=== PATIENT | female | born 1980 | race Caucasian/White ===

== ENCOUNTER 2017-07-11 09:25 | Day surgery (SDC) | payer BC ==
[~2017-07-11 09:25] MED LIST: Bupivacaine 0.5% 10 ML SDV ONE; Lactated Ringers 1,000 ML IV SCH; ceFAZolin 1 GM Vial ONE
[2017-07-11] MEDS ORDERED: fentaNYL 100 MCG/2 ML SDV ONE (09:32)
[2017-07-11] MEDS ORDERED: Midazolam 1 MG/ML 2 ML SDV ONE (09:32)
[2017-07-11] MEDS ORDERED: Lidocaine 2% 5 ML SDV ONE (09:32)
[2017-07-11] MEDS ORDERED: Ondansetron 4 MG/2 ML SDV ONE (09:32)
[2017-07-11] MEDS ORDERED: Propofol 200 MG/20 ML SDV ONE (09:32)
--- NOTE | 2017-07-11 10:28 | PCM.PREANE ---
Preanesthetic Assessment - Procedure Proposed Procedure: left axillary dissection for infected area - Anesthesia/Transfusion/Family Hx Anesthesia History: Prior Anesthesia Without Reaction Other Type of Anesthesia Reaction Comment: Denies any known problems, no knwon family histroy of problems Transfusion History: No Prior Transfusion(s) Intubation History: Unknown - Review of Systems General: Other (axillary problem) Pulmonary: Other (asthmatic, smoker, uses bronchodilator daily) Gastrointestinal: No Symptoms Neurological: No Symptoms Other: Reports: None - Physical Assessment NPO Status Date: 07/10/17 NPO Status Time: 22:30 O2 Sat by Pulse Oximetry: 98 Respiratory Rate: 16 Vital Signs: Last Vital Signs Temp 97.5 F 07/11/17 09:46 Pulse 76 07/11/17 09:46 Resp 16 07/11/17 09:46 BP 109/59 L 07/11/17 09:46 Pulse Ox 98 07/11/17 09:46 Height: 5 ft 5 in Weight: 139 lb ASA Class: 2 Mental Status: Alert & Oriented x3 Airway Class: Mallampati = 1 Dentition: Reports: Normal Dentition Thyro-Mental Finger Breadths: 3 Mouth Opening Finger Breadths: 3 ROM/Head Extension: Full Lungs: Clear to Auscultation, Normal Respiratory Effort Cardiovascular: Regular Rate, Regular Rhythm, No Murmurs - Lab Values: Laboratory Last Values Urine HCG, Qual NEGATIVE (NEGATIVE) 07/11/17 09:29 - Allergies Allergies/Adverse Reactions: Allergies Allergy/AdvReac Type Severity Reaction Status Date / Time amoxicillin Allergy Hives Verified 08/13/14 10:45 diphenhydramine HCl Allergy Hives Verified 08/13/14 10:45 [From Benadryl] erythromycin base Allergy Hives Verified 07/05/17 09:20 latex Allergy Itching Verified 08/13/14 10:45 Sulfa (Sulfonamide Allergy Hives Verified 08/13/14 10:45 Antibiotics) sulfamethoxazole Allergy Hives Verified 08/13/14 10:45 [From Bactrim] trimethoprim [From Bactrim] Allergy Hives Verified 08/13/14 10:45 coconuts Allergy Hives Uncoded 08/13/14 10:45 Melons Allergy Hives Uncoded 08/13/14 10:45 - Blood Blood Available: No Product(s) Available: None - Acknowledgements Anesthesia Type Planned: General Anesthesia (LMA) Pt an Appropriate Candidate for the Planned Anesthesia: Yes Alternatives and Risks of Anesthesia Discussed w Pt/Guardian: Yes Pt/Guardian Understands and Agrees with Anesthesia Plan: Yes PreAnesthesia Questionnaire HEENT History: Reports: Other (See Below) 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 Respiratory History: Reports: Asthma Gastrointestinal History: Reports: GERD, Other (See Below) Other Gastrointestinal History: hx gastric ulcer Genitourinary History: Reports: None Musculoskeletal History: Reports: Fracture Other Musculoskeletal History: hx fx elbow, collarbone and shoulder Neurological History: Reports: Migraines - Past Surgical History Head Surgeries/Procedures: Reports: None GI Surgical History: Reports: Appendectomy Female Surgical History: Reports: Breast Biopsy, Section Dermatological Surgical History: Reports: Other (See Below) - SUBSTANCE USE Smoking Status *Q: Current Every Day Smoker Tobacco Use Within Last Twelve Months: Cigarettes Days Per Week of Alcohol Use: 7 Number of Drinks Per Day: 6 Total Drinks Per Week: 42 Recreational Drug Use History: No - HOME MEDS Home Medications: Home Meds Albuterol [Ventolin HFA] 2 puff INH ASDIRECTED PRN 08/13/14 [History] Cyclobenzaprine HCl 1 tab PO TID PRN 07/05/17 [History] Ranitidine HCl [Zantac] 150 mg PO ASDIRECTED PRN 07/05/17 [History] traMADol HCl [Tramadol HCl] 50 mg PO ASDIRECTED PRN 07/05/17 [History] - CURRENT (IN HOUSE) MEDS Current Meds: Current Medications Fentanyl (Sublimaze) 50 mcg IVPUSH .Q5MIN PRN PRN Reason: Pain Lactated Ringer's (Ringers, Lactated) 1,000 mls @ 125 mls/hr IV ASDIRECTED IRINA Discontinued Medications Bupivacaine HCl (Sensorcaine-Mpf 0.5%) Confirm Administered Dose 10 ml .ROUTE .STK-MED ONE Stop: 07/11/17 07:29 Cefazolin Sodium (Ancef) Confirm Administered Dose 3 gm .ROUTE .STK-MED ONE Stop: 07/11/17 07:29 Fentanyl (Sublimaze) Confirm Administered Dose 200 mcg .ROUTE .STK-MED ONE Stop: 07/11/17 09:33 Lidocaine (Xylocaine-Mpf 2%) Confirm Administered Dose 5 ml .ROUTE .STK-MED ONE Stop: 07/11/17 09:33 Midazolam HCl (Versed 1 Mg/Ml) Confirm Administered Dose 2 mg .ROUTE .STK-MED ONE Stop: 07/11/17 09:33 Ondansetron HCl (Zofran) Confirm Administered Dose 4 mg .ROUTE .STK-MED ONE Stop: 07/11/17 09:33 Propofol (Diprivan 20 Ml) Confirm Administered Dose 200 mg .ROUTE .STK-MED ONE Stop: 07/11/17 09:33
[2017-07-11] MEDS ORDERED: Morphine 10 MG/ML Syringe IVPUSH PRN (11:08)
[2017-07-11] MEDS ORDERED: Acetaminophen/HYDROcodone 325-5 MG Tab PO PRN (11:08)
[2017-07-11] MEDS ORDERED: Lactated Ringers 1,000 ML IV SCH (11:15)
--- NOTE | 2017-07-11 11:16 | PCM.OPNOTE ---
- General Post-Op/Procedure Note Date of Surgery/Procedure: 07/11/17 Operative Procedure(s): Incision and drainage, recurrent, left axillary abscess Pre Op Diagnosis: Recurrent left axillary abscess Post-Op Diagnosis: Same Anesthesia Technique: General LMA (ASA II) Primary Surgeon: Hugh Milligan Fluid Replacement, Intraop: 1,000 EBL in mLs: 5 Condition: Good Free Text/Narrative:: Dictation [id number] CPT CODE 91615
[2017-07-11] MEDS ORDERED: Bupivacaine 0.5% 10 ML SDV ONE (11:25)
--- NOTE | 2017-07-11 11:28 | PCM.POSTAN ---
POST ANESTHESIA ASSESSMENT - MENTAL STATUS Mental Status: Alert, Oriented - RESPIRATORY Respiratory Status: Respiratory Rate WNL, Airway Patent, O2 Saturation Stable - CARDIOVASCULAR CV Status: Pulse Rate WNL, Blood Pressure Stable - GASTROINTESTINAL GI Status: No Symptoms - PAIN Pain Score: 9 Free Text/Narrative:: getting pain mediation before leaving recovery. - POST OP HYDRATION Hydration Status: Adequate & Stable
[2017-07-11] MEDS: fentaNYL 100 MCG/2 ML SDV IVPUSH PRN ×2 (11:31→11:37)
--- NOTE | 2017-07-11 11:39 | OR ---
SURGEON: Hugh Milligan M.D. DATE OF PROCEDURE: 07/11/2017 OPERATION PERFORMED: Incision and drainage, recurrent left axillary abscess. ANESTHESIA: General LMA. ASA CLASSIFICATION: II. PREOPERATIVE DIAGNOSIS: Recurrent left axillary abscess. POSTOPERATIVE DIAGNOSIS: Recurrent left axillary abscess. ESTIMATED BLOOD LOSS: 5 mL. INTRAOPERATIVE FLUID REPLACEMENT: A 1000 mL of crystalloid. DESCRIPTION OF PROCEDURE: The patient was taken to the operating room and placed on the operating table in supine position. Time-out was called for appropriate identification of the patient and procedure. Following satisfactory attainment of general anesthesia with placement of an LMA, the left arm was abducted and supported on a pillow and sponge cushions. The left axilla was prepped with Betadine solution and sterile drapes were applied. Skin incision was made directly through the previous axillary incision and blunt dissection was carried down into the subcutaneous tissue. No significant abscess cavity was identified. Aerobic cultures were obtained, although, no obvious inflammatory mass was identified. Dissection was carried down towards the breast and again no significant loculations were identified and there was no significant inflammatory reaction. The wound was then irrigated with sterile saline solution and packed open with half-inch plain Nu Gauze dressed with 4x4s and held in place with Mefix tape. Sponge, needle, and instrument counts were all correct. The patient tolerated the procedure well. Following emergence from anesthesia and extubation, she was taken to recovery room in stable condition. JASMIN FRAZIER /[id number]
[2017-07-11 12:40] VITALS: BP 113/68
--- NOTE | 2017-07-11 13:10 | PCM48HPAN ---
Post Anesthesia Note - EVALUATION WITHIN 48HRS OF ANESTHETIC Vital Signs in Normal Range: Yes Patient Participated in Evaluation: Yes Respiratory Function Stable: Yes Airway Patent: Yes Cardiovascular Function Stable: Yes Hydration Status Stable: Yes Pain Control Satisfactory: Yes Nausea and Vomiting Control Satisfactory: Yes Mental Status Recovered: Yes - COMMENTS/OBSERVATIONS Free Text/Narrative:: No apparent anesthesia complications
== END 2017-07-11 13:15 | disposition home or self-care (01) ==
LOC: MW.SDS 09:25
PROVIDERS: ATTEND Surgery
DX: L02.412 Cutaneous abscess of left axilla (principal); F17.210 Nicotine dependence, cigarettes, uncomplicated; J45.909 Unspecified asthma, uncomplicated; K21.9 Gastro-esophageal reflux disease without esophagitis; G43.909 Migraine, unspecified, not intractable, without status migrainosus; Z88.0 Allergy status to penicillin; Z88.2 Allergy status to sulfonamides; Z88.8 Allergy status to other drugs, medicaments and biological substances; Z88.1 Allergy status to other antibiotic agents; Z91.018 Allergy to other foods; Z91.040 Latex allergy status; Z98.890 Other specified postprocedural states; Z80.41 Family history of malignant neoplasm of ovary; Z90.49 Acquired absence of other specified parts of digestive tract
CPT/HCPCS: 10060; 81025; 87070; 87205; A9270; J2250; J2405; J3010; J7120; 00400; J0690; J2704

== ENCOUNTER 2018-01-11 11:00 | Day surgery (SDC) | payer MEDICAID ==
[~2018-01-11 11:00] MED LIST changes: +Betamethasone Acetate/Betamethasone Sod Phosphate 30 MG/5 ML MDV ONE; -Bupivacaine 0.5% 10 ML SDV ONE; +Iopamidol 408 MG/ML 50 ML SDV ONE; -Lactated Ringers 1,000 ML IV SCH; +Lidocaine 2% 5 ML SDV ONE; +Ropivacaine 0.5% 5 MG/ML 30 ML SDV ONE; -ceFAZolin 1 GM Vial ONE
--- NOTE | 2018-01-11 15:14 | OR ---
SURGEON: Ligia Guillen D.O. DATE OF PROCEDURE: 01/11/2018 OR STAFF PRESENT: 1. Noemi Norman RN. 2. Natalee Watson RT. WOUND CLASSIFICATION: I. PREOPERATIVE DIAGNOSES: 1. Lumbar degenerative disk disease at L4-L5 and L5-S1. 2. Lumbar spondylosis. 3. Lumbar radiculopathy. POSTOPERATIVE DIAGNOSES: 1. Lumbar degenerative disk disease at L4-L5 and L5-S1. 2. Lumbar spondylosis. 3. Lumbar radiculopathy. PROCEDURES PERFORMED: 1. Lumbar interlaminar epidural steroid injection at L4-L5. 2. Fluoroscopic guidance for needle placement. 3. Local with oral valium for sedation. SCREENING QUESTIONS: The patient answered "no" to all of the following questions: 1. Are you allergic to latex? 2. Do you have a bleeding disorder? 3. Do you have any current local or systemic infections? 4. Are you taking any anti-inflammatories or blood thinners? 5. Do you have any joint replacements, heart valve replacements, or a pacemaker? DESCRIPTION OF PROCEDURE: The patient had the procedure thoroughly explained including all possible risks, benefits and alternatives. Consent was signed in my clinic indicating understanding and willingness to proceed. The patient presented to [facility] [place] and was escorted to the dressing room to disrobe and change into a hospital gown. Preoperative vital signs were taken and stable. The patient reported that Valium was taken prior to the procedure. The patient was brought back to the procedure room and placed in the prone position on the procedure room table. A pillow was placed under the hips in order to flatten the lumbar lordosis. The back was prepped with ChloraPrep and sterilely draped. All personnel in the operating room were dressed in appropriate attire including surgical scrubs, head and shoe covers. This was to ensure sterility while in the treatment room. During the time fluoroscopy was in use, all personnel in the operating room wore lead wasserman with thyroid collars. Sterile technique was used throughout the procedure. The patient was awake and conversant throughout the procedure. There was no evidence of infection at the site of needle insertion. Skeletal landmarks were identified under fluoroscopy for the lumbar epidural. Skin was anesthetized with 2% lidocaine with a sterile 27-gauge 1.5 inch needle. Then, a 20-gauge Tuohy epidural needle was placed in the epidural space with loss of resistance technique under fluoroscopic guidance. No heme, cerebrospinal fluid, or paresthesias were noted. Isovue-200 contrast dye was injected in 0.2 cubic centimeter increments and seen to outline the epidural space in both AP and lateral views. There was no intravascular flow pattern observed under live fluoroscopy. Then, 12 milligrams of Celestone was slowly injected after negative aspiration. The patient tolerated the procedure well. Vital signs were stable during and after the procedure. The staff escorted the patient to the recovery area and the patient was released in stable condition after a brief stay in the recovery room monitored by the nurse. The patient was given both oral and written discharge and follow up instructions with recommendation to follow up given for 2-3 weeks. The patient voiced understanding including understanding of those signs and symptoms that would require emergency care. The patient knows how to contact the office if there are any additional problems or questions in the meantime. PREOPERATIVE PAIN: 6 to 8/10 POSTOPERATIVE PAIN: 4/10 FOLLOWUP: Follow up in the Pain Clinic in 3 weeks YARON FRAZIER /[id number]
== END 2018-01-11 13:37 ==
LOC: MW.SDS 11:00
PROVIDERS: ATTEND Anesthesiology
DX: G89.29 Other chronic pain (principal); M51.17 Intervertebral disc disorders with radiculopathy, lumbosacral region; M47.27 Other spondylosis with radiculopathy, lumbosacral region; D64.9 Anemia, unspecified; J45.909 Unspecified asthma, uncomplicated; M22.40 Chondromalacia patellae, unspecified knee; K59.09 Other constipation; G57.00 Lesion of sciatic nerve, unspecified lower limb; F17.200 Nicotine dependence, unspecified, uncomplicated; Z79.899 Other long term (current) drug therapy; Z88.0 Allergy status to penicillin; Z88.1 Allergy status to other antibiotic agents; Z88.2 Allergy status to sulfonamides; Z88.8 Allergy status to other drugs, medicaments and biological substances; Z91.040 Latex allergy status; Z91.018 Allergy to other foods
CPT/HCPCS: J0702; J2795; Q9966

== ENCOUNTER 2018-10-12 11:18 | Day surgery (SDC) | payer MEDICAID ==
[~2018-10-12 11:18] MED LIST changes: -Betamethasone Acetate/Betamethasone Sod Phosphate 30 MG/5 ML MDV ONE; -Iopamidol 408 MG/ML 50 ML SDV ONE; +Lactated Ringers 1,000 ML IV SCH; +Midazolam 1 MG/ML 2 ML SDV ONE; +Propofol 200 MG/20 ML SDV ONE; -Ropivacaine 0.5% 5 MG/ML 30 ML SDV ONE
--- NOTE | 2018-10-12 12:45 | PCM.PREANE ---
Preanesthetic Assessment - Anesthesia/Transfusion/Family Hx Anesthesia History: Prior Anesthesia Without Reaction Other Type of Anesthesia Reaction Comment: Denies any known problems, no knwon family histroy of problems Family History of Anesthesia Reaction: No Transfusion History: No Prior Transfusion(s) Intubation History: Unknown - Review of Systems General: No Symptoms Pulmonary: No Symptoms Cardiovascular: No Symptoms Gastrointestinal: Constipation (bloating), Other (family h/o colon cancer) Neurological: No Symptoms Other: Reports: None - Physical Assessment NPO Status Date: 10/12/18 O2 Sat by Pulse Oximetry: 95 Respiratory Rate: 16 Vital Signs: Last Vital Signs Temp 37.2 C 10/12/18 11:55 Pulse 74 10/12/18 11:55 Resp 16 10/12/18 11:55 BP 104/57 L 10/12/18 11:55 Pulse Ox 95 10/12/18 11:55 Height: 1.65 m Weight: 63.957 kg ASA Class: 2 Mental Status: Alert & Oriented x3 Airway Class: Mallampati = 2 Dentition: Reports: Partial (bottom) Thyro-Mental Finger Breadths: 3 Mouth Opening Finger Breadths: 3 ROM/Head Extension: Full Lungs: Clear to Auscultation, Normal Respiratory Effort Cardiovascular: Regular Rate, Regular Rhythm - Allergies Allergies/Adverse Reactions: Allergies Allergy/AdvReac Type Severity Reaction Status Date / Time amoxicillin Allergy Hives Verified 10/08/18 16:15 diphenhydramine HCl Allergy Hives Verified 10/08/18 16:15 [From Benadryl] erythromycin base Allergy Hives Verified 10/08/18 16:15 latex Allergy Itching Verified 10/08/18 16:15 lubiprostone [From Amitiza] Allergy Hives Verified 10/08/18 16:15 Sulfa (Sulfonamide Allergy Hives Verified 10/08/18 16:15 Antibiotics) sulfamethoxazole Allergy Hives Verified 10/08/18 16:15 [From Bactrim] trimethoprim [From Bactrim] Allergy Hives Verified 10/08/18 16:15 coconuts Allergy Hives Uncoded 10/08/18 16:15 Melons Allergy Hives Uncoded 10/08/18 16:15 - Blood Blood Available: No - Anesthesia Plan Pre-Op Medication Ordered: None - Acknowledgements Anesthesia Type Planned: MAC Pt an Appropriate Candidate for the Planned Anesthesia: Yes Alternatives and Risks of Anesthesia Discussed w Pt/Guardian: Yes Pt/Guardian Understands and Agrees with Anesthesia Plan: Yes PreAnesthesia Questionnaire HEENT History: Reports: Other (See Below) 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 Cardiovascular History: Reports: None Respiratory History: Reports: Asthma Gastrointestinal History: Reports: Chronic Constipation, GERD, Other (See Below) Other Gastrointestinal History: hx gastric ulcer Genitourinary History: Reports: None 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: Musculoskeletal History: Reports: Back Pain, Chronic, Fracture, Neck Pain, Chronic Other Musculoskeletal History: hx fx collarbone, DDD Neurological History: Reports: Migraines Psychiatric History: Reports: None Endocrine/Metabolic History: Reports: None Hematologic History: Reports: Other (See Below) (thalassemia) Immunologic History: Reports: None Oncologic (Cancer) History: Reports: None - Past Surgical History Head Surgeries/Procedures: Reports: None Cardiovascular Surgical History: Reports: None Respiratory Surgical History: Reports: None GI Surgical History: Reports: Appendectomy Female Surgical History: Reports: Breast Biopsy, Section Endocrine Surgical History: Reports: None Neurological Surgical History: Reports: None Oncologic Surgical History: Reports: Biopsy of Breast Dermatological Surgical History: Reports: Other (See Below) (I&D of skin abscess ) - SUBSTANCE USE Smoking Status *Q: Current Every Day Smoker (down to few cigarettes per day - on nicotine patch) Tobacco Use Within Last Twelve Months: Cigarettes Recreational Drug Use History: No - HOME MEDS Home Medications: Home Meds Albuterol [Ventolin HFA] 2 puff INH ASDIRECTED PRN 08/13/14 [History] Calcium &Vit D Bone Health Liq 1 dose PO ASDIRECTED 10/08/18 [History] Diclofenac Sodium [Voltaren] 1 applic TOP ASDIRECTED PRN 10/08/18 [History] Fluticasone Propion/Salmeterol [Fluticasone-Salmeterol 250-50] 1 puff INH BID [History] Lidocaine/Prilocaine [Lidocaine-Prilocaine Cream] 1 applic TOP ASDIRECTED PRN [History] Nicotine [Nicotine Patch] 1 patch TRDERM ASDIRECTED 10/08/18 [History] Nitroglycerin 1 tab SL ASDIRECTED PRN 10/08/18 [History] Ranitidine HCl [Zantac] 150 mg PO DAILY 10/08/18 [History] Vitamin B Complex with C [Super B With Vitamin C] 1 tab PO DAILY 10/08/18 [ History] - CURRENT (IN HOUSE) MEDS Current Meds: Current Medications Lactated Ringer's (Ringers, Lactated) 1,000 mls @ 125 mls/hr IV ASDIRECTED IRINA Last Admin: 10/12/18 11:55 Dose: 125 mls/hr Discontinued Medications Lidocaine (Xylocaine-Mpf 2%) Confirm Administered Dose 5 ml .ROUTE .STK-MED ONE Stop: 10/12/18 11:08 Midazolam HCl (Versed 1 Mg/Ml) Confirm Administered Dose 2 mg .ROUTE .STK-MED ONE Stop: 10/12/18 11:09 Propofol (Diprivan 20 Ml) Confirm Administered Dose 400 mg .ROUTE .STK-MED ONE Stop: 10/12/18 11:09
[2018-10-12] MEDS ORDERED: Propofol 200 MG/20 ML SDV ONE (13:38)
--- NOTE | 2018-10-12 13:55 | PCM.OPNOTE ---
- General Post-Op/Procedure Note Date of Surgery/Procedure: 10/12/18 Operative Procedure(s): Esophagogastroduodenoscopy with biopsy. Colonoscopy with cold sigmoid colon polypectomy. Pre Op Diagnosis: Abdominal bloating. Epigastric pain. Progressive heartburn. Change in bowel habits. Family history of colon cancer. Post-Op Diagnosis: Mild gastritis. Sigmoid colon polyp. Anesthesia Technique: MAC (ASA II) Primary Surgeon: Hugh Milligan Condition: Good Free Text/Narrative:: DICTATION [id number] CPT CODE [id number]
[2018-10-12] MEDS ORDERED: Lactated Ringers 1,000 ML IV SCH (14:00)
--- NOTE | 2018-10-12 14:03 | PCM.POSTAN ---
POST ANESTHESIA ASSESSMENT - MENTAL STATUS Mental Status: Alert, Oriented - RESPIRATORY Respiratory Status: Respiratory Rate WNL, Airway Patent, O2 Saturation Stable - CARDIOVASCULAR CV Status: Pulse Rate WNL, Blood Pressure Stable - GASTROINTESTINAL GI Status: No Symptoms - PAIN Pain Score: 0 - POST OP HYDRATION Hydration Status: Adequate & Stable
--- NOTE | 2018-10-12 14:24 | PCM48HPAN ---
Post Anesthesia Note - EVALUATION WITHIN 48HRS OF ANESTHETIC Vital Signs in Normal Range: Yes Patient Participated in Evaluation: Yes Respiratory Function Stable: Yes Airway Patent: Yes Cardiovascular Function Stable: Yes Hydration Status Stable: Yes Pain Control Satisfactory: Yes Nausea and Vomiting Control Satisfactory: Yes Mental Status Recovered: Yes Resp Rate: 12 - COMMENTS/OBSERVATIONS Free Text/Narrative:: no anesthesia problems
[2018-10-12 15:11] VITALS: BP 124/67
--- NOTE | 2018-10-12 19:57 | OR ---
SURGEON: Hugh Milligan M.D. DATE OF PROCEDURE: 10/12/2018 OPERATION PERFORMED: Esophagogastroduodenoscopy with gastric biopsy. ANESTHESIA: MAC. ASA CLASSIFICATION: 2. PREOPERATIVE DIAGNOSES: 1. Abdominal bloating. 2. Progressive heartburn. 3. Epigastric pain. POSTOPERATIVE DIAGNOSES: Mild chronic gastritis, no ulcerations. DESCRIPTION OF PROCEDURE: The patient was taken to the endoscopy room and positioned on the endoscopy table in the supine position. Time-out was called for appropriate identification of the patient and procedure. Monitored anesthesia care was provided. The bite block was placed between the patient's teeth. The gastroscope was inserted through the bite block into the oropharynx and advanced without difficulty through the esophagus and stomach into the duodenum where examination was now carried out in a retrograde fashion. The duodenum shows no acute inflammatory changes or ulcerations. Stomach does show a mild gastritis. Antral biopsies were obtained to look for the presence of Helicobacter pylori. The gastroscope was retroflexed to visualize the proximal stomach. No tumors or polyps were seen. There was no significant hiatal hernia. The gastroscope was then straightened and slowly withdrawn. The GE junction was well defined and shows no acute inflammatory changes or ulcerations. The esophagus demonstrates good contractility. No mid or proximal lesions were identified. The vocal cords were visualized as the scope was withdrawn and noted to move symmetrically. The gastroscope was then removed with the patient having tolerated this portion of the procedure well. Following colonoscopy, she was taken to recovery room in stable condition. JASMIN / KARIN /[id number]
--- NOTE | 2018-10-12 20:06 | OR ---
SURGEON: Hugh Milligan M.D. DATE OF PROCEDURE: 10/12/2018 OPERATION PERFORMED: Colonoscopy with cold sigmoid colon polypectomy. PRIMARY SURGEON: Hugh Milligan M.D. ANESTHESIA: MAC. ASA CLASSIFICATION: II. PREOPERATIVE DIAGNOSES: 1. Change in bowel habits. 2. Family history of colon cancer. POSTOPERATIVE DIAGNOSIS: Sigmoid polyp. DESCRIPTION OF PROCEDURE: With the patient having completed upper GI endoscopy, she was now positioned in the left lateral decubitus position. The colonoscope was inserted into the rectum and advanced with moderate difficulty to the cecum. Cecum was identified by internal landmarks and external pressure. The colonoscope was retroflexed in the cecum to visualize the ascending colon from below. The colonoscope was then straightened and slowly withdrawn. Cecum, ascending colon, hepatic flexure, transverse colon, splenic flexure, and descending colon were very well visualized. There were no tumors, polyps, diverticula, or angiodysplastic changes noted anywhere in the lower gastrointestinal tract. One small polyp was encountered in the sigmoid colon and this was removed with cold biopsy forceps and sent for histologic analysis. No sigmoid diverticular changes were noted. The colonoscope was withdrawn to the distal rectum and retroflexed to visualize the anal orifice from above. No tumors or polyps were seen and there were no acute hemorrhoidal changes. The colonoscope was then straightened, the rectum aspirated, and the colonoscope removed. The patient tolerated the procedure well and was taken to recovery room in stable condition. JASMIN / KARIN /[id number]
== END 2018-10-12 14:45 | disposition home or self-care (01) ==
LOC: MW.SDS 11:18
PROVIDERS: ATTEND Surgery
DX: D12.5 Benign neoplasm of sigmoid colon (principal); K29.50 Unspecified chronic gastritis without bleeding; K59.09 Other constipation; K21.9 Gastro-esophageal reflux disease without esophagitis; J45.909 Unspecified asthma, uncomplicated; F17.210 Nicotine dependence, cigarettes, uncomplicated; Z88.0 Allergy status to penicillin; Z88.2 Allergy status to sulfonamides; Z88.8 Allergy status to other drugs, medicaments and biological substances; Z91.018 Allergy to other foods; Z88.1 Allergy status to other antibiotic agents; Z91.040 Latex allergy status; Z87.19 Personal history of other diseases of the digestive system; Z79.51 Long term (current) use of inhaled steroids; Z79.899 Other long term (current) drug therapy
CPT/HCPCS: 43239; 45380; J2001; J2250; J2704; J7120; 88305; 88312

== ENCOUNTER 2018-11-16 06:22 | Day surgery (SDC) | payer MEDICAID ==
[~2018-11-16 06:22] MED LIST changes: -Lidocaine 2% 5 ML SDV ONE; -Midazolam 1 MG/ML 2 ML SDV ONE; -Propofol 200 MG/20 ML SDV ONE; +cefOXitin 2 GM in Premix Bag 1 BAG IV ONE
[2018-11-16] MEDS ORDERED: Scopolamine 1.5 MG Transdermal Patch TRDERM PRN (06:52)
--- NOTE | 2018-11-16 06:56 | PCM.PREANE ---
Preanesthetic Assessment - Anesthesia/Transfusion/Family Hx Anesthesia History: Prior Anesthesia Without Reaction Other Type of Anesthesia Reaction Comment: Denies any known problems, no knwon family histroy of problems Family History of Anesthesia Reaction: No Transfusion History: No Prior Transfusion(s) Intubation History: Unknown - Review of Systems General: No Symptoms Pulmonary: No Symptoms Cardiovascular: No Symptoms Gastrointestinal: Abdominal Pain, Constipation Neurological: No Symptoms Other: Reports: None - Physical Assessment Height: 1.65 m Weight: 64.864 kg ASA Class: 2 Mental Status: Alert & Oriented x3 Airway Class: Mallampati = 2 Dentition: Reports: Normal Dentition, Partial (lowwer front) Thyro-Mental Finger Breadths: 3 Mouth Opening Finger Breadths: 3 (narrow mouth) ROM/Head Extension: Full Lungs: Clear to Auscultation, Normal Respiratory Effort Cardiovascular: Regular Rate, Regular Rhythm - Allergies Allergies/Adverse Reactions: Allergies Allergy/AdvReac Type Severity Reaction Status Date / Time amoxicillin Allergy Hives Verified 11/13/18 10:37 diphenhydramine HCl Allergy Hives Verified 11/13/18 10:38 [From Benadryl] erythromycin base Allergy Hives Verified 11/13/18 10:37 latex Allergy Itching Verified 11/13/18 10:37 lubiprostone [From Amitiza] Allergy Hives Verified 11/13/18 10:37 Sulfa (Sulfonamide Allergy Hives Verified 11/13/18 10:37 Antibiotics) sulfamethoxazole Allergy Hives Verified 11/13/18 10:37 [From Bactrim] trimethoprim [From Bactrim] Allergy Hives Verified 11/13/18 10:37 coconuts Allergy Hives Uncoded 11/13/18 10:37 Melons Allergy Hives Uncoded 11/13/18 10:37 - Blood Blood Available: No - Anesthesia Plan Pre-Op Medication Ordered: None - Acknowledgements Anesthesia Type Planned: General Anesthesia Pt an Appropriate Candidate for the Planned Anesthesia: Yes Alternatives and Risks of Anesthesia Discussed w Pt/Guardian: Yes Pt/Guardian Understands and Agrees with Anesthesia Plan: Yes PreAnesthesia Questionnaire HEENT History: Reports: Other (See Below) 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 Cardiovascular History: Reports: None Respiratory History: Reports: Asthma (mild) Gastrointestinal History: Reports: Chronic Constipation, Colon Polyp, GERD, Other (See Below) Other Gastrointestinal History: hx gastric ulcer, intermittent RUQ pain, cholecystitis Genitourinary History: Reports: None [employer] History: Reports: Musculoskeletal History: Reports: Back Pain, Chronic, Fracture, Neck Pain, Chronic Other Musculoskeletal History: hx fx collarbone, DDD thoracic spine Neurological History: Reports: Migraines Psychiatric History: Reports: None Endocrine/Metabolic History: Reports: None Hematologic History: Reports: Anemia, Other (See Below) (thalassemia) Immunologic History: Reports: None Oncologic (Cancer) History: Reports: None Dermatologic History: Reports: None - Past Surgical History Head Surgeries/Procedures: Reports: None HEENT Surgical History: Reports: None Cardiovascular Surgical History: Reports: None Respiratory Surgical History: Reports: None GI Surgical History: Reports: Appendectomy, Colonoscopy Female Surgical History: Reports: Breast Biopsy, Section Endocrine Surgical History: Reports: None Neurological Surgical History: Reports: None Oncologic Surgical History: Reports: Biopsy of Breast Dermatological Surgical History: Reports: Other (See Below) (I&D skin abscess) - SUBSTANCE USE Smoking Status *Q: Current Every Day Smoker (< 1 ppd) Tobacco Use Within Last Twelve Months: Cigarettes Recreational Drug Use History: No - HOME MEDS Home Medications: Home Meds Albuterol [Ventolin HFA] 2 puff INH ASDIRECTED PRN 08/13/14 [History] Calcium &Vit D Bone Health Liq 1 dose PO ASDIRECTED 10/08/18 [History] Diclofenac Sodium [Voltaren] 1 applic TOP ASDIRECTED PRN 10/08/18 [History] Fluticasone Propion/Salmeterol [Fluticasone-Salmeterol 250-50] 1 puff INH BID [History] Lidocaine/Prilocaine [Lidocaine-Prilocaine Cream] 1 applic TOP ASDIRECTED PRN [History] Nicotine [Nicotine Patch] 1 patch TRDERM ASDIRECTED 10/08/18 [History] Nitroglycerin 1 tab SL ASDIRECTED PRN 10/08/18 [History] Ranitidine HCl [Zantac] 150 mg PO DAILY 10/08/18 [History] Vitamin B Complex with C [Super B With Vitamin C] 1 tab PO DAILY 10/08/18 [ History] - CURRENT (IN HOUSE) MEDS Current Meds: Current Medications Lactated Ringer's (Ringers, Lactated) 1,000 mls @ 125 mls/hr IV ASDIRECTED [place] Discontinued Medications Cefoxitin Sodium 2 gm/ Premix 50 mls @ 100 mls/hr IV ONETIME ONE Stop: 11/16/18 06:29
[2018-11-16] MEDS ORDERED: ceFAZolin 1 GM Vial ONE (07:32)
[2018-11-16] MEDS ORDERED: Bupivacaine 0.5% 10 ML SDV ONE (07:33)
[2018-11-16] MEDS ORDERED: fentaNYL 100 MCG/2 ML SDV ONE (07:35)
[2018-11-16] MEDS ORDERED: Propofol 200 MG/20 ML SDV ONE (07:35)
[2018-11-16] MEDS ORDERED: Midazolam 1 MG/ML 2 ML SDV ONE (07:35)
[2018-11-16] MEDS ORDERED: Lidocaine 2% 5 ML SDV ONE (07:35)
[2018-11-16] MEDS ORDERED: Rocuronium 100 MG/10 ML Syringe ONE (07:36)
[2018-11-16] MEDS ORDERED: Ciprofloxacin in D5W 400 MG in Premix Bag 1 BAG IV SCH ×2 (07:45)
[2018-11-16] MEDS ORDERED: HYDROmorphone 2 MG/ML Syringe ONE (08:33)
[2018-11-16] MEDS ORDERED: Ondansetron 4 MG/2 ML SDV ONE (08:39)
[2018-11-16] MEDS ORDERED: Glycopyrrolate 0.2 MG/ML SDV ONE (08:39)
[2018-11-16] MEDS ORDERED: Dexamethasone 4 MG/ML 5 ML MDV ONE (08:39)
[2018-11-16] MEDS ORDERED: Ketorolac 30 MG/ML SDV ONE (08:39)
[2018-11-16] MEDS ORDERED: Neostigmine Methylsulfate 1 MG/ML 5 ML Syringe ONE (08:39)
[2018-11-16] MEDS ORDERED: Promethazine 25 MG/ML SDV IM PRN (08:50)
[2018-11-16] MEDS ORDERED: Meperidine PF 25 MG/ML Syringe IV PRN (08:50)
[2018-11-16] MEDS ORDERED: fentaNYL 100 MCG/2 ML SDV IVPUSH PRN (08:51)
[2018-11-16] MEDS ORDERED: Lactated Ringers 1,000 ML IV SCH (09:30)
--- NOTE | 2018-11-16 09:31 | PCM.OPNOTE ---
- General Post-Op/Procedure Note Date of Surgery/Procedure: 11/16/18 Operative Procedure(s): Laparoscopic cholecystectomy Pre Op Diagnosis: Chronic right upper quadrant pain. Abnormal hepatobiliary scan. Post-Op Diagnosis: Chronic cholecystitis Anesthesia Technique: General ET Tube (ASA II) Primary Surgeon: Hugh Milligan Fluid Replacement, Intraop: 1,000 Output, Urine Amount: 60 EBL in mLs: 20 Condition: Good Free Text/Narrative:: DICTATION [id number] CPT CODE 49596
--- NOTE | 2018-11-16 09:55 | PCM.POSTAN ---
POST ANESTHESIA ASSESSMENT - MENTAL STATUS Mental Status: Alert, Oriented - RESPIRATORY Respiratory Status: Respiratory Rate WNL, Airway Patent, O2 Saturation Stable - CARDIOVASCULAR CV Status: Pulse Rate WNL, Blood Pressure Stable - GASTROINTESTINAL GI Status: No Symptoms - PAIN Pain Score: 5 - POST OP HYDRATION Hydration Status: Adequate & Stable - OBSERVATIONS Free Text/Narrative:: no anesthesia problems
[2018-11-16] MEDS: Acetaminophen/oxyCODONE 325-5 MG Tab PO PRN ×2 (10:11→12:10)
[2018-11-16] MEDS: Morphine 10 MG/ML Syringe IVPUSH PRN ×2 (10:11→10:50)
[2018-11-16] MEDS ORDERED: Cetirizine 10 MG Tab PO ONE (10:37)
--- NOTE | 2018-11-16 12:56 | PCM48HPAN ---
Post Anesthesia Note - EVALUATION WITHIN 48HRS OF ANESTHETIC Vital Signs in Normal Range: Yes Patient Participated in Evaluation: Yes Respiratory Function Stable: Yes Airway Patent: Yes Cardiovascular Function Stable: Yes Hydration Status Stable: Yes Pain Control Satisfactory: Yes Nausea and Vomiting Control Satisfactory: Yes Mental Status Recovered: Yes Resp Rate: 15 - COMMENTS/OBSERVATIONS Free Text/Narrative:: no anesthesia problems
[2018-11-16 14:01] VITALS: BP 112/68
--- NOTE | 2018-11-16 15:51 | OR ---
SURGEON: Hugh Milligan M.D. DATE OF PROCEDURE: 11/16/2018 OPERATION PERFORMED: Laparoscopic cholecystectomy. ANESTHESIA: General endotracheal. ASA CLASSIFICATION: II. PREOPERATIVE DIAGNOSES: 1. Chronic right upper quadrant pain. 2. Abnormal hepatobiliary scan. POSTOPERATIVE DIAGNOSIS: Mild chronic cholecystitis. ESTIMATED BLOOD LOSS: 20 mL. INTRAOPERATIVE FLUID REPLACEMENT: 1000 mL of crystalloid. URINE OUTPUT: 60 mL. DESCRIPTION OF PROCEDURE: The patient was taken to the operating room and placed on the operating table in the supine position. Time-out was called for appropriate identification of the patient and procedure. Thigh-high TEDs and sequential compression boots were placed. Following satisfactory attainment of general endotracheal anesthesia, a Mcnair catheter was placed in the patient's urinary bladder. The abdomen was now prepped with DuraPrep solution and sterile drapes were applied. The skin below the umbilicus was infiltrated with 0.5% Marcaine solution. Skin incision was made and deepened through the subcutaneous tissue obtaining hemostasis with the use of electrocautery. The Veress needle was introduced into the peritoneal cavity. Saline drop test was positive. Carbon dioxide pneumoperitoneum was established with the relief set at 13 cm of water. Once satisfactory pneumoperitoneum was established, 5 mm camera and port were placed through the infraumbilical incision. Under camera vision, 12 mm subxiphoid, 5 mm midclavicular, and 5 mm anterior axillary incision ports were placed. Each incision had preemptively been infiltrated with 0.5% Marcaine solution. The gallbladder was grasped and adhesions were taken down. The stomach was adherent to the gallbladder, but was able to be dissected away with minimal difficulty. The cholecystohepatic triangle was then dissected free obtaining a good critical view of both the cystic duct and cystic artery. These structures were serially hemoclipped and divided with the laparoscopic Metzenbaum scissor. The gallbladder was then dissected away from its bed using electrocautery. No bile was spilled. No stones were present. Once the gallbladder was amputated, this was placed in an Endopouch and maintained in situ. The gallbladder bed was irrigated with sterile saline solution. No bleeding was noted and there was no evidence of bile leakage. The fluid was then aspirated and the right hemidiaphragm now irrigated with 250 mL of saline containing 20 mL of 0.5% Marcaine solution. That fluid was left in place. The gallbladder and 12 mm port were removed without difficulty. Under camera vision, 5 mm midclavicular and anterior axillary ports were removed. Finally, the infraumbilical camera and port were removed. The wounds were inspected for hemostasis and small bleeding sites were electrocoagulated. The subxiphoid and infraumbilical incisions were closed in 2 layers approximating the subcutaneous tissue with 3-0 Vicryl and the skin with subcuticular 4-0 Monocryl. The anterior axillary and midclavicular incisions were closed with subcuticular 4-0 Monocryl. All incisions were Steri-Stripped and dressed with sterile Tegaderm pads. Sponge, needle, and instrument counts were all correct. Mcnair catheter was removed prior to emergence from anesthesia. Following emergence from anesthesia and extubation, the patient was taken to recovery room in stable condition. JASMIN FRAZIER /[id number]
== END 2018-11-16 13:00 | disposition home or self-care (01) ==
LOC: MW.SDS 06:22
PROVIDERS: ATTEND Surgery
DX: K81.1 Chronic cholecystitis (principal); K90.49 Malabsorption due to intolerance, not elsewhere classified; J45.40 Moderate persistent asthma, uncomplicated; D64.9 Anemia, unspecified; D56.9 Thalassemia, unspecified; F17.210 Nicotine dependence, cigarettes, uncomplicated; N60.19 Diffuse cystic mastopathy of unspecified breast; Z91.018 Allergy to other foods; Z88.8 Allergy status to other drugs, medicaments and biological substances; Z88.0 Allergy status to penicillin; Z88.1 Allergy status to other antibiotic agents; Z88.2 Allergy status to sulfonamides; Z91.040 Latex allergy status; Z79.51 Long term (current) use of inhaled steroids; Z79.899 Other long term (current) drug therapy
CPT/HCPCS: 47562; 81025; A9270; J0744; J1100; J1170; J1885; J2001; J2250; J2270; J2405; J2704; J3010; J3490; J7120; 00790; 88304; J0690